=== PATIENT | male | born 1995 | race Caucasian/White ===

== ENCOUNTER 2020-01-25 17:20 | Emergency (ER) | payer SELFPAY ==
[2020-01-26 16:19] LABS: SARS-CoV-2 MS2 Positive; SARS-CoV-2 N Gene Negative; SARS-CoV-2 S Gene Negative; SARS-CoV-2 orf1ab Negative
== END 2020-01-25 17:57 | disposition home or self-care (01) ==
LOC: ERS 17:20
DX: Z20.828 Contact with and (suspected) exposure to other viral communicable diseases (principal); I10 Essential (primary) hypertension; Z79.899 Other long term (current) drug therapy
CPT/HCPCS: 87635; 99283; U0003

== ENCOUNTER 2020-05-11 08:59 | Outpatient (CLI) | payer BC ==
--- NOTE | 2020-05-11 09:16 | RAD ---
XR Knee Lt 4 View STANDARD HISTORY: Injury, left knee pain FINDINGS: No fracture or dislocation is identified. No joint effusion is seen.
== END 2020-05-11 09:00 | disposition home or self-care (01) ==
LOC: SCSRAD 08:59
PROVIDERS: ATTEND Family Medicine
DX: S89.92XS Unspecified injury of left lower leg, sequela (principal)

== ENCOUNTER 2020-11-22 07:24 | Emergency (ER) | payer BC | END 2020-11-22 07:52 | disposition home or self-care (01) | LOC: ERS 07:24 | DX: S10.91XA Abrasion of unspecified part of neck, initial encounter (principal); I10 Essential (primary) hypertension; Z79.899 Other long term (current) drug therapy; W50.4XXA Accidental scratch by another person, initial encounter | CPT/HCPCS: 99283 ==